=== PATIENT | male | born 1950 | race Caucasian/White ===

== ENCOUNTER → 2019-08-23 | Outpatient (CLI) | payer MEDICARE, OTHER ==
[2015-06-06 16:23] VITALS: BP 80/52
[~2019-08-23] MED LIST: AMOXICILLIN 8751 TAB PO; CIPRO 500MG TA500 MG PO; CIPRO500 M1 PO; CO Q-1010 M1 PO; DIPHENOXYLATE W1 TAB PO; FEMIRON20 MG PO; FLORA-Q1 CAP PO; KLOR-CON 1010 MEQ PO; LEVAQUIN 5500 MG/TA1 PO; LEVOFLOXACIN500 M1 PO; LOMOTIL TAB 01 UDTAB PO; LOPERAMIDE2 M1 PO; NORCO 325 MG-101 TAB PO; NORCO 325 MG-51 TAB; NYSTATIN UD5 ML/CUP PO; ONDANSETRON8 M2 PO; PANTOPRAZOLE40 MG PO; TYLENOL 325MG325 MG PO; [UNRECOGNIZED DRUG - OTHER]
[2019-08-23 11:06] LABS: ALBUMIN 4.5 g/dL (3.4-4.8); POTASSIUM 4.2 mmol/L (3.5-5.1)
[2019-08-23 11:07] LABS: CALCIUM 8.9 mg/dL (8.3-10.5)
[2019-08-23 11:08] LABS: TOTAL PROTEIN 7.5 g/dL (6.2-8.1)
[2019-08-23 11:10] LABS: TOTAL BILIRUBIN 1.1 mg/dL (0.2-1.2)
[2019-08-23 11:20] LABS: EOS % 0.7 % (0.0-4.0); HEMATOCRIT 43.6 % (42.0-52.0); HEMOGLOBIN 14.2 g/dL (13.5-18.0); LYMPH# 1.3 (1.50-4.00); MEAN CELL VOLUME 90 fl (78-100); MEAN CORPUSCULAR HEMOGLOBIN 29 pg (27-31); MEAN CORPUSCULAR HGB CONC 33 g/dL (33-37); MEAN PLATELET VOLUME 9.6 fl (7.4-10.4); MONO # 0.7 (0.20-0.80); NEU # 4.1 (1.40-6.50); PLATELET COUNT 190 K/mm3 (130-400); RED BLOOD COUNT 4.85 M/mm3 (4.20-5.60); RED CELL DISTRIBUTION WIDTH 14.1 % (11.5-14.5); WHITE BLOOD COUNT 6.1 K/mm3 (4.8-10.8)
[2019-08-23 12:10] LABS: ERYTHROCYTE SEDIMENTATION RATE 7 mm/hr (0-20)
[2019-08-23 22:49] LABS: TESTOSTERONE 372 ng/dL (221-716)
== END ==
LOC: LAB 10:38
PROVIDERS: Internal Medicine
DX: Z12.5 Encounter for screening for malignant neoplasm of prostate (principal); Z12.11 Encounter for screening for malignant neoplasm of colon; C83.38 Diffuse large B-cell lymphoma, lymph nodes of multiple sites; D50.8 Other iron deficiency anemias; E78.2 Mixed hyperlipidemia; K90.9 Intestinal malabsorption, unspecified; N52.9 Male erectile dysfunction, unspecified; R73.02 Impaired glucose tolerance (oral)

== ENCOUNTER → 2021-06-10 | Outpatient (CLI) | payer MEDICARE, OTHER | LOC: LAB 09:03 | DX: C61 Malignant neoplasm of prostate (principal) ==

== ENCOUNTER → 2021-12-02 | Outpatient (CLI) | payer MEDICARE, OTHER | LOC: LAB 11:31 | DX: C61 Malignant neoplasm of prostate (principal) ==

== ENCOUNTER → 2023-12-01 | Outpatient (CLI) | payer MEDICARE | LOC: LAB 08:00 | DX: C61 Malignant neoplasm of prostate (principal) ==

== ENCOUNTER → 2024-05-31 | Outpatient (CLI) | payer MEDICARE ==
[2024-05-31 08:42] LABS: BASO # 0.01 K/mm3 (0.02-0.10); EOS # 0.01 K/mm3 (0.04-0.40); EOS % 0.3 % (0.0-4.0); HEMOGLOBIN 12.5 g/dL (13.5-18.0); LYMPH# 1.26 K/mm3 (1.50-4.00); MEAN CELL VOLUME 91 fl (78-100); MEAN CORPUSCULAR HEMOGLOBIN 30 pg (27-31); MEAN CORPUSCULAR HGB CONC 33 g/dL (33-37); MEAN PLATELET VOLUME 9.4 fl (7.4-10.4); MONO # 0.45 K/mm3 (0.20-0.80); NEU # 1.88 K/mm3 (1.40-6.50); PLATELET COUNT 125 K/mm3 (130-400); RED CELL DISTRIBUTION WIDTH 13.7 % (11.5-14.5); WHITE BLOOD COUNT 3.9 K/mm3 (4.8-10.8)
== END ==
LOC: LAB 08:26
PROVIDERS: Internal Medicine
DX: D61.818 Other pancytopenia (principal)

== ENCOUNTER → 2024-06-14 | Outpatient (CLI) | payer MEDICARE ==
[2024-06-14 08:38] LABS: BASO # 0.02 K/mm3 (0.02-0.10); EOS # 0.01 K/mm3 (0.04-0.40); EOS % 0.2 % (0.0-4.0); HEMATOCRIT 38.8 % (42.0-52.0); HEMOGLOBIN 12.4 g/dL (13.5-18.0); LYMPH# 1.34 K/mm3 (1.50-4.00); MEAN CELL VOLUME 92 fl (78-100); MEAN CORPUSCULAR HEMOGLOBIN 30 pg (27-31); MEAN CORPUSCULAR HGB CONC 32 g/dL (33-37); MONO # 0.45 K/mm3 (0.20-0.80); NEU # 2.17 K/mm3 (1.40-6.50); PLATELET COUNT 143 K/mm3 (130-400)
== END ==
LOC: LAB 08:21
PROVIDERS: Internal Medicine
DX: D50.9 Iron deficiency anemia, unspecified (principal)